=== PATIENT | female | born 1935 | race Caucasian/White ===

== ENCOUNTER 2018-10-17 19:23 | Emergency (ER) | payer MEDICARE ==
[~2018-10-17] VITALS: Ht 152.4 cm; Wt 46.7 kg
[2018-10-17] MEDS ORDERED: LOSA25 PO (19:37)
[2018-10-17] MEDS ORDERED: DILT30 PO (19:37)
[2018-10-17 20:06] LABS: BASOPHILS ABSOLUTE AUTO 0.04 K/mm3 (0.00-0.23); BASOPHILS PERCENT AUTO 1 % (0-2); EOSINOPHILS ABSOLUTE AUTO 0.13 K/mm3 (0.00-0.68); EOSINOPHILS PERCENT AUTO 2 % (0-6); Hematocrit 32.9 % (33.0-51.0); Hemoglobin 10.5 g/dL (11.5-16.0); IMMATURE GRAN ABSOLUTE AUTO 0.01 K/mm3 (0.00-0.10); IMMATURE GRAN PERCENT AUTO 0 % (0-1); LYMPHOCYTES ABSOLUTE AUTO 1.89 K/mm3 (0.84-5.20); LYMPHOCYTES PERCENT AUTO 31 % (21-46); MONOCYTES ABSOLUTE AUTO 0.51 K/mm3 (0.16-1.47); MONOCYTES PERCENT AUTO 8 % (4-13); Mean Corpuscular HGB 29.1 pg (26.0-34.0); Mean Corpuscular HGB Conc 31.9 g/dL (31.5-36.5); Mean Corpuscular Volume 91 fL (80-100); Mean Platelet Volume 8.4 fL (9.1-12.4); NEUTROPHILS ABSOLUTE AUTO 3.53 K/mm3 (1.96-9.15); NEUTROPHILS PERCENT AUTO 58 % (41-73); Platelet Count 311 K/mm3 (150-400); RDW Coefficient Variation 13.8 % (11.7-14.2); RDW Standard Deviation 46.5 fL (35.1-46.3); Red Blood Cell Count 3.61 M/mm3 (3.80-5.20); White Blood Cell Count 6.11 K/mm3 (4.00-11.30)
[2018-10-17 20:18] LABS: Albumin, Blood 3.7 g/dL (3.4-5.0); Bilirubin, Total 0.2 mg/dL (0.1-1.0); Bun/Creatinine Ratio 13.9 (12.0-20.0); Calcium, Blood 8.7 mg/dL (8.5-10.1); Creatinine, Blood 1.01 mg/dL (0.40-1.00); Globulin, Blood 3.6 g/dL (2.2-4.0); Potassium, Blood 3.7 mmol/L (3.5-5.5); Total Protein, Blood 7.3 g/dL (6.4-8.2)
[2018-10-17 21:24] LABS: Source, Urine Clean Catch
[2018-10-17 21:26] LABS: Bilirubin, Urine Neg (Neg); Blood, Urine 1+ (Neg); Glucose Qualitative, Urine Neg (Neg); Ketones, Urine 1+ (Neg); Leukocyte Esterase, Urine 1+ (Neg); Nitrite, Urine Neg (Neg); Protein, Urine 1+ (Neg); Urobilinogen, Urine 1+ (Normal)
[2018-10-17 21:38] LABS: Appearance, Urine Clear (Clear); Color, Urine Yellow (P-Yellow)
[2018-10-17 21:39] LABS: Bacteria Mod /hpf; Mucus Light (0-Heavy); Red Blood Cells, Urine 0-2 /hpf (0-2); Squamous Epithelial Cells Rare /hpf (Few)
[2018-10-17] MEDS ORDERED: HYOS.125 SL (23:11)
== END 2018-10-17 23:29 | disposition home or self-care (01) ==
LOC: ER 19:23
PROVIDERS: Physician Assistant
DX: R10.9 Unspecified abdominal pain (principal); R19.7 Diarrhea, unspecified; Z87.891 Personal history of nicotine dependence; Z79.899 Other long term (current) drug therapy
CPT/HCPCS: 80053; 81001; 83690; 85025; 87086; 99284

== ENCOUNTER 2020-08-29 00:09 | Observation (INO) | payer MEDICARE ==
[~2020-08-29] VITALS: Ht 167.6 cm; Wt 45.6 kg
[~2020-08-29 00:09] MED LIST: DILT30 PO; HYOS.125 SL; LOSA25 PO
[2020-08-29 00:38] LABS: BASOPHILS ABSOLUTE AUTO 0.06 K/mm3 (0.00-0.23); BASOPHILS PERCENT AUTO 1 % (0-2); EOSINOPHILS ABSOLUTE AUTO 0.18 K/mm3 (0.00-0.68); EOSINOPHILS PERCENT AUTO 2 % (0-6); Hematocrit 33.5 % (33.0-51.0); Hemoglobin 11.2 g/dL (11.5-16.0); IMMATURE GRAN ABSOLUTE AUTO 0.02 K/mm3 (0.00-0.10); IMMATURE GRAN PERCENT AUTO 0 % (0-1); LYMPHOCYTES ABSOLUTE AUTO 4.05 K/mm3 (0.84-5.20); LYMPHOCYTES PERCENT AUTO 50 % (21-46); MONOCYTES ABSOLUTE AUTO 0.53 K/mm3 (0.16-1.47); MONOCYTES PERCENT AUTO 7 % (4-13); Mean Corpuscular HGB 29.2 pg (26.0-34.0); Mean Corpuscular HGB Conc 33.4 g/dL (31.5-36.5); Mean Corpuscular Volume 87 fL (80-100); Mean Platelet Volume 8.1 fL (9.1-12.4); NEUTROPHILS ABSOLUTE AUTO 3.24 K/mm3 (1.96-9.15); NEUTROPHILS PERCENT AUTO 40 % (41-73); Platelet Count 372 K/mm3 (150-400); RDW Coefficient Variation 13.6 % (11.7-14.2); RDW Standard Deviation 43.3 fL (35.1-46.3); Red Blood Cell Count 3.84 M/mm3 (3.80-5.20); White Blood Cell Count 8.08 K/mm3 (4.00-11.30)
[2020-08-29 00:55] LABS: Alanine Aminotransfer (ALT/SGP 21 U/L (12-78); Albumin, Blood 3.8 g/dL (3.4-5.0); Alk Phos 95 U/L (50-136); Anion Gap 9 mmol/L (6-16); Aspartate Aminotrans (AST/SGOT 26 U/L (12-37); Bilirubin, Total 0.2 mg/dL (0.1-1.0); Blood Urea Nitrogen 16 mg/dL (8-24); CO2, Blood 24 mmol/L (21-32); Calcium, Blood 9.2 mg/dL (8.5-10.1); Chloride, Blood 104 mmol/L (98-108); Glomerular Filtration Rate 56 (60-); Glucose, Blood 94 mg/dL (70-99); Potassium, Blood 3.6 mmol/L (3.5-5.5); Sodium, Blood 137 mmol/L (136-145); Total Protein, Blood 7.8 g/dL (6.4-8.2); Troponin I <0.015 ng/mL (0.000-0.040)
[2020-08-29 01:33] LABS: Source, Urine Clean Catch
[2020-08-29 01:35] LABS: Bilirubin, Urine Neg (Neg); Blood, Urine Neg (Neg); Glucose Qualitative, Urine Neg (Neg); Ketones, Urine Neg (Neg); Leukocyte Esterase, Urine Neg (Neg); Nitrite, Urine Neg (Neg); Protein, Urine 1+ (Neg); Urobilinogen, Urine NORM (Normal)
[2020-08-29 01:37] LABS: Appearance, Urine Clear (Clear); Color, Urine Yellow (P-Yellow)
[2020-08-29] MEDS ORDERED: AMLO5 PO (02:35)
[2020-08-29 03:42] LABS: Magnesium, Blood 2.2 mg/dL (1.6-2.4)
--- NOTE | 2020-08-29 05:30 | NUR ---
RECEIVED REPORT FROM MIRA ERWIN RN. PT ARRIVED TO RM 336 VIA GURNEY. PT WAS A 1PA TO THE ROOM BED. A/O. ON RA. NO COMPLAINTS. PT ORIENTED TO CALL LT SYSTEM. CALL LT IN REACH. WILL PROVIDE CARE T/O SHIFT.
--- NOTE | 2020-08-29 06:42 | NUR ---
SHIFT SUMMARY: ER ADMIT AT 0530. A/0. ON RA. SR ON TELE AT 64. DENIES CP, SOB, NAUSEA. PT TO HAVE ECHO THIS AM. NO ACUTE CHANGES. WILL PROVIDE CARE UNTIL SHIFT REPORT.
[2020-08-29 09:00] LABS: BASOPHILS ABSOLUTE AUTO 0.05 K/mm3 (0.00-0.23); BASOPHILS PERCENT AUTO 1 % (0-2); EOSINOPHILS ABSOLUTE AUTO 0.01 K/mm3 (0.00-0.68); EOSINOPHILS PERCENT AUTO 0 % (0-6); IMMATURE GRAN ABSOLUTE AUTO 0.02 K/mm3 (0.00-0.10); IMMATURE GRAN PERCENT AUTO 0 % (0-1); LYMPHOCYTES ABSOLUTE AUTO 1.47 K/mm3 (0.84-5.20); LYMPHOCYTES PERCENT AUTO 20 % (21-46); MONOCYTES ABSOLUTE AUTO 0.39 K/mm3 (0.16-1.47); MONOCYTES PERCENT AUTO 5 % (4-13); Mean Corpuscular HGB 28.4 pg (26.0-34.0); Mean Corpuscular HGB Conc 32.4 g/dL (31.5-36.5); Mean Corpuscular Volume 88 fL (80-100); Mean Platelet Volume 8.2 fL (9.1-12.4); NEUTROPHILS ABSOLUTE AUTO 5.27 K/mm3 (1.96-9.15); NEUTROPHILS PERCENT AUTO 73 % (41-73); Platelet Count 357 K/mm3 (150-400); RDW Coefficient Variation 13.5 % (11.7-14.2); RDW Standard Deviation 43.7 fL (35.1-46.3); Red Blood Cell Count 3.88 M/mm3 (3.80-5.20); White Blood Cell Count 7.21 K/mm3 (4.00-11.30)
[2020-08-29 09:26] LABS: Alanine Aminotransfer (ALT/SGP 20 U/L (12-78); Albumin, Blood 3.8 g/dL (3.4-5.0); Alk Phos 91 U/L (50-136); Anion Gap 6 mmol/L (6-16); Aspartate Aminotrans (AST/SGOT 25 U/L (12-37); Bilirubin, Total 0.4 mg/dL (0.1-1.0); Blood Urea Nitrogen 12 mg/dL (8-24); Bun/Creatinine Ratio 13.2 (12.0-20.0); CO2, Blood 25 mmol/L (21-32); CPK Creatine Kinase 121 U/L (26-193); Calcium, Blood 9.1 mg/dL (8.5-10.1); Chloride, Blood 106 mmol/L (98-108); Creatinine, Blood 0.91 mg/dL (0.40-1.00); Globulin, Blood 3.8 g/dL (2.2-4.0); Glomerular Filtration Rate >60 (60-); Glucose, Blood 88 mg/dL (70-99); Potassium, Blood 4.3 mmol/L (3.5-5.5); Sodium, Blood 137 mmol/L (136-145); Total Protein, Blood 7.6 g/dL (6.4-8.2); Troponin I <0.015 ng/mL (0.000-0.040)
[2020-08-29 16:59] LABS: CPK Creatine Kinase 145 U/L (26-193); Troponin I <0.015 ng/mL (0.000-0.040)
--- NOTE | 2020-08-29 18:53 | NUR ---
ALERT. ORIENTED. TELE ON AND HAS BEEN SR LOW 60'S. IV PATENT. HAS DENIED ANY PAIN/DISCOMFORT . UNLABORED RESPIRATIONS. PLEASANT. COOPERATIVE. STEADY GAIT IN ROOM. [facility]
--- NOTE | 2020-08-30 05:36 | NUR ---
SHIFT SUMMARY NO ACUTE CHANGES THIS SHIFT. AOX4. TE-MOAK. PLEASENT & COOPERATIVE c CARE. VSS. TELE SB @57. DENIES N/V, SOB, CP, DIZZINESS OR PALPITATIONS. CALL LT IN REACH. WCTM UNTIL DAY NURSE ASSUMES CARE.
[2020-08-30] MEDS ORDERED: METO25ER PO (10:25)
[2020-08-30] MEDS ORDERED: XARELTO20 MG PO (10:25)
--- NOTE | 2020-08-30 11:00 | NUR ---
PATIENT D/C'D TO HOME WITH DAUGHTER. RX MEDCIATIONS FAXED TO [facility]. DC INSTRUCTIONS AND EDUCATION DISCUSSED WITH PATIENT AND COPY PROVIDED. PATIENT DENIES ANY FURTHER QUESTIONS OR CONCERNS.
== END 2020-08-30 11:27 | disposition home or self-care (01) ==
LOC: ER 00:09 → ERHOLD 00:10 → MEDS 05:30
PROVIDERS: Emergency Medicine; ADMIT Internal Medicine
DX: I48.0 Paroxysmal atrial fibrillation (principal); I13.10 Hypertensive heart and chronic kidney disease without heart failure, with stage 1 through stage 4 chronic kidney disease, or unspecified chronic kidney disease; N18.1 Chronic kidney disease, stage 1; Z87.891 Personal history of nicotine dependence
CPT/HCPCS: 36415; 71045; 80053; 82550; 83735; 83880; 84484; 85025; 93005; 93010; 93306; 96372; 96374-59; 99285-25; A9270; G0378; J1650; J7030

== ENCOUNTER 2021-08-26 15:50 | Observation (INO) | payer MEDICARE ==
[~2021-08-26] VITALS: Ht 152.4 cm; Wt 24.6 kg
[~2021-08-26 15:50] MED LIST changes: +AMLO5 PO; +METO25ER PO; +XARELTO15 M1 PO
[2021-08-26 16:17] LABS: BASOPHILS ABSOLUTE AUTO 0.03 K/mm3 (0.00-0.23); BASOPHILS PERCENT AUTO 1 % (0-2); EOSINOPHILS ABSOLUTE AUTO 0.06 K/mm3 (0.00-0.68); EOSINOPHILS PERCENT AUTO 1 % (0-6); Hematocrit 37.8 % (33.0-51.0); Hemoglobin 12.5 g/dL (11.5-16.0); IMMATURE GRAN ABSOLUTE AUTO 0.03 K/mm3 (0.00-0.10); IMMATURE GRAN PERCENT AUTO 1 % (0-1); LYMPHOCYTES ABSOLUTE AUTO 1.72 K/mm3 (0.84-5.20); LYMPHOCYTES PERCENT AUTO 26 % (21-46); MONOCYTES ABSOLUTE AUTO 0.48 K/mm3 (0.16-1.47); MONOCYTES PERCENT AUTO 7 % (4-13); Mean Corpuscular HGB 28.5 pg (26.0-34.0); Mean Corpuscular HGB Conc 33.1 g/dL (31.5-36.5); Mean Corpuscular Volume 86 fL (80-100); Mean Platelet Volume 8.2 fL (9.1-12.4); NEUTROPHILS ABSOLUTE AUTO 4.29 K/mm3 (1.96-9.15); NEUTROPHILS PERCENT AUTO 65 % (41-73); Platelet Count 377 K/mm3 (150-400); RDW Coefficient Variation 13.8 % (11.7-14.2); RDW Standard Deviation 43.8 fL (35.1-46.3); Red Blood Cell Count 4.38 M/mm3 (3.80-5.20); White Blood Cell Count 6.61 K/mm3 (4.00-11.30)
[2021-08-26] MEDS ORDERED: AMLODIPINE BESYL5 MG PO (16:26)
[2021-08-26] MEDS ORDERED: DIAZEPAM2 M2 PO (16:27)
[2021-08-26 16:38] LABS: Bilirubin, Total 0.3 mg/dL (0.1-1.0); Bun/Creatinine Ratio 14.5 (12.0-20.0); Calcium, Blood 9.1 mg/dL (8.5-10.1); Creatinine, Blood 0.9 mg/dL (0.40-1.00); Globulin, Blood 4.2 g/dL (2.2-4.0); Magnesium, Blood 1.9 mg/dL (1.6-2.4); Potassium, Blood 3.5 mmol/L (3.5-5.5); Total Protein, Blood 8.2 g/dL (6.4-8.2)
--- NOTE | 2021-08-26 21:30 | NUR ---
ADMISSION REPORT RECIEVED FROM ER NURSE. PATIENT ARRIVED TO PCU 6, ABLE TO TRANSFER SELF OVER TO PCU BED. CARDIZEM GTT INFUSING AT 5 ML/HR. HR 120s. CARDIAC MONITORING IN PLACE. ORIENTED TO ROOM/CALL LIGHT SYSTEM. DAUGHTER ACCOMPANIED PATIENT TO UNIT. BED IN LOW POSITION, WILL CONTINUE TO MONITOR T/O NIGHT.
[2021-08-27 04:35] LABS: BASOPHILS ABSOLUTE AUTO 0.06 K/mm3 (0.00-0.23); BASOPHILS PERCENT AUTO 1 % (0-2); EOSINOPHILS ABSOLUTE AUTO 0.04 K/mm3 (0.00-0.68); EOSINOPHILS PERCENT AUTO 1 % (0-6); Hemoglobin 12.2 g/dL (11.5-16.0); IMMATURE GRAN ABSOLUTE AUTO 0.01 K/mm3 (0.00-0.10); IMMATURE GRAN PERCENT AUTO 0 % (0-1); LYMPHOCYTES ABSOLUTE AUTO 1.92 K/mm3 (0.84-5.20); LYMPHOCYTES PERCENT AUTO 27 % (21-46); MONOCYTES ABSOLUTE AUTO 0.51 K/mm3 (0.16-1.47); MONOCYTES PERCENT AUTO 7 % (4-13); Mean Corpuscular HGB 28.8 pg (26.0-34.0); Mean Corpuscular Volume 87 fL (80-100); Mean Platelet Volume 8.6 fL (9.1-12.4); NEUTROPHILS ABSOLUTE AUTO 4.61 K/mm3 (1.96-9.15); NEUTROPHILS PERCENT AUTO 65 % (41-73); Platelet Count 357 K/mm3 (150-400); RDW Coefficient Variation 14.1 % (11.7-14.2); RDW Standard Deviation 44.9 fL (35.1-46.3); Red Blood Cell Count 4.24 M/mm3 (3.80-5.20); White Blood Cell Count 7.15 K/mm3 (4.00-11.30)
[2021-08-27 05:04] LABS: Alanine Aminotransfer (ALT/SGP 27 U/L (12-78); Albumin, Blood 3.7 g/dL (3.4-5.0); Alk Phos 97 U/L (50-136); Anion Gap 7 mmol/L (6-16); Aspartate Aminotrans (AST/SGOT 25 U/L (12-37); Bilirubin, Total 0.5 mg/dL (0.1-1.0); Blood Urea Nitrogen 10 mg/dL (8-24); Bun/Creatinine Ratio 13.3 (12.0-20.0); CO2, Blood 24 mmol/L (21-32); Calcium, Blood 9.1 mg/dL (8.5-10.1); Chloride, Blood 104 mmol/L (98-108); Creatinine, Blood 0.75 mg/dL (0.40-1.00); Globulin, Blood 3.8 g/dL (2.2-4.0); Glomerular Filtration Rate >60 (60-); Glucose, Blood 87 mg/dL (70-99); Potassium, Blood 4.5 mmol/L (3.5-5.5); Sodium, Blood 135 mmol/L (136-145); Total Protein, Blood 7.5 g/dL (6.4-8.2)
--- NOTE | 2021-08-27 05:18 | NUR ---
SHIFT SUMMARY PATIENT ALERT AND ORIENTED x4. VSS. HR LOW TO MID 60s, PATIENT CONVERTED TO SINUS RHYTHM, CARDIZEM GTT ON STANBY SINCE 2239. SEE FLOWSHEET. PATIENT HAS SLEPT MAJORITY OF SHIFT COMFORTABLY. DENIES CHEST PAIN, SOB OR ANY OTHER DISCOMFORT T/O THE NIGHT. PATIENT USING BEDSIDE COMMODE AT BEDSIDE, STAND BY ASSIST. NO OTHER CHANGES SINCE ADMISSION. CALL LIGHT IN REACH, BED IN LOW POSITION. WILL REPORT TO DAY SHIFT RN.
[2021-08-27] MEDS ORDERED: METO25ER PO (11:56)
--- NOTE | 2021-08-27 13:55 | NUR ---
PT DISCHARGE TO HOME WITH DISCHARGE ORDERS. MEDICATION AND DISCHARGE INSTRUCTIONS DISCLOSED WITH THE PT. NO NEW MEDICATIONS AT THIS TIME PT TO FOLLOW-UP WITH CARDIOLOGISTS AND PCP WITHIN A WEEK AND WITH A PROVIDER AT [facility] TO DO ABLATION. DENIES ANY CHEST PAIN/DISCOMFORT, VITALS HAS BEEN STABLE, REMAINED SINUS RHYTHM T/O SHIFT. ALL BELONGINGS SENT WITH THE PT, ACCOMPANIED BY PCT VIA WHEELCHAIR.
== END 2021-08-27 12:23 | disposition home or self-care (01) ==
LOC: ER 15:50 → PCU 15:51
PROVIDERS: Physician Assistant; ADMIT Internal Medicine
DX: I48.91 Unspecified atrial fibrillation (principal); I12.9 Hypertensive chronic kidney disease with stage 1 through stage 4 chronic kidney disease, or unspecified chronic kidney disease; N18.1 Chronic kidney disease, stage 1; E87.6 Hypokalemia; Z79.01 Long term (current) use of anticoagulants
CPT/HCPCS: 36415; 71045; 80053; 83735; 83880; 84484; 85025; A9270; J3475; J3480; J7030

== ENCOUNTER 2022-01-16 13:46 | Observation (INO) | payer MEDICARE ==
[~2022-01-16] VITALS: Ht 152.4 cm; Wt 45.3 kg
[~2022-01-16 13:46] MED LIST changes: +AMLODIPINE BESYL5 MG PO; +DIAZEPAM2 M2 PO
[2022-01-16 14:31] LABS: BASOPHILS ABSOLUTE AUTO 0.05 K/mm3 (0.00-0.23); BASOPHILS PERCENT AUTO 1 % (0-2); EOSINOPHILS ABSOLUTE AUTO 0.02 K/mm3 (0.00-0.68); EOSINOPHILS PERCENT AUTO 0 % (0-6); Hemoglobin 12.9 g/dL (11.5-16.0); IMMATURE GRAN ABSOLUTE AUTO 0.03 K/mm3 (0.00-0.10); IMMATURE GRAN PERCENT AUTO 0 % (0-1); LYMPHOCYTES ABSOLUTE AUTO 1.87 K/mm3 (0.84-5.20); LYMPHOCYTES PERCENT AUTO 22 % (21-46); MONOCYTES ABSOLUTE AUTO 0.56 K/mm3 (0.16-1.47); MONOCYTES PERCENT AUTO 6 % (4-13); Mean Corpuscular HGB 29.3 pg (26.0-34.0); Mean Corpuscular HGB Conc 33.9 g/dL (31.5-36.5); Mean Corpuscular Volume 86 fL (80-100); Mean Platelet Volume 8.2 fL (9.1-12.4); NEUTROPHILS ABSOLUTE AUTO 6.18 K/mm3 (1.96-9.15); NEUTROPHILS PERCENT AUTO 71 % (41-73); Platelet Count 405 K/mm3 (150-400); RDW Coefficient Variation 13.6 % (11.7-14.2); RDW Standard Deviation 42.8 fL (35.1-46.3); Red Blood Cell Count 4.41 M/mm3 (3.80-5.20); White Blood Cell Count 8.71 K/mm3 (4.00-11.30)
[2022-01-16 14:36] LABS: Albumin, Blood 3.9 g/dL (3.4-5.0); Bilirubin, Total 0.5 mg/dL (0.1-1.0); Bun/Creatinine Ratio 18.9 (12.0-20.0); Calcium, Blood 9.6 mg/dL (8.5-10.1); Creatinine, Blood 0.74 mg/dL (0.40-1.00); Total Protein, Blood 7.9 g/dL (6.4-8.2)
[2022-01-16 15:14] LABS: Source, Urine Condom Cath
[2022-01-16 15:31] LABS: Appearance, Urine Clear (Clear); Bilirubin, Urine Neg (Neg); Blood, Urine Neg (Neg); Glucose Qualitative, Urine Neg (Neg); Ketones, Urine 1+ (Neg); Leukocyte Esterase, Urine Neg (Neg); Nitrite, Urine Neg (Neg); Protein, Urine Neg (Neg); Urobilinogen, Urine NORM (Normal)
[2022-01-16 15:56] LABS: Color, Urine Pale Yellow (P-Yellow)
--- NOTE | 2022-01-16 21:17 | NUR ---
ASSUMED CARE OF PATIENT AT APPROXIMATELY 2051 FROM ED RN [place]. PATIENT ALERT AND ORIENTED X4; SBA FROM ED TO PCU STRETCHER; INDEPENDENT IN ROOM. PATIENT REPORTS SHE TOOK 10MG OF AMLODIPINE LAST NIGHT AND FELT DIZZY. PATIENT DENIES CP/PRESSURE, PAIN ELSEWHERE, NUMBESS, TINGING, DIZZINESS, AND NAUSEA. SR ON TELE; OXYGEN SATURATION ABOVE 90% ON ROOM AIR. PIV X2 S/L. ARRIVED ON CARDIZEM GTT AT 5; PUT IN STANDBY SR IN 60'S. ADMISSION COMPLETE.
--- NOTE | 2022-01-16 21:30 | NUR ---
PATIENT CALLED RN TO ROOM CONCERNED PILL GIVEN WAS NOT AMLODIPINE; PILL WRAPPER PROVIDED AND EDUCATED PATIENT ON DIFFERENT MANUFACTURES.
[2022-01-17 04:28] LABS: BASOPHILS ABSOLUTE AUTO 0.04 K/mm3 (0.00-0.23); BASOPHILS PERCENT AUTO 1 % (0-2); EOSINOPHILS ABSOLUTE AUTO 0.07 K/mm3 (0.00-0.68); EOSINOPHILS PERCENT AUTO 1 % (0-6); Hematocrit 32.1 % (33.0-51.0); Hemoglobin 10.9 g/dL (11.5-16.0); IMMATURE GRAN ABSOLUTE AUTO 0.01 K/mm3 (0.00-0.10); IMMATURE GRAN PERCENT AUTO 0 % (0-1); LYMPHOCYTES ABSOLUTE AUTO 1.65 K/mm3 (0.84-5.20); LYMPHOCYTES PERCENT AUTO 34 % (21-46); MONOCYTES ABSOLUTE AUTO 0.42 K/mm3 (0.16-1.47); MONOCYTES PERCENT AUTO 9 % (4-13); Mean Corpuscular HGB 28.9 pg (26.0-34.0); Mean Corpuscular Volume 85 fL (80-100); Mean Platelet Volume 8.1 fL (9.1-12.4); NEUTROPHILS ABSOLUTE AUTO 2.74 K/mm3 (1.96-9.15); NEUTROPHILS PERCENT AUTO 56 % (41-73); Platelet Count 337 K/mm3 (150-400); RDW Coefficient Variation 13.7 % (11.7-14.2); RDW Standard Deviation 42.6 fL (35.1-46.3); Red Blood Cell Count 3.77 M/mm3 (3.80-5.20); White Blood Cell Count 4.93 K/mm3 (4.00-11.30)
[2022-01-17 04:51] LABS: Albumin, Blood 3.3 g/dL (3.4-5.0); Bilirubin, Total 0.5 mg/dL (0.1-1.0); Bun/Creatinine Ratio 15.1 (12.0-20.0); Calcium, Blood 8.7 mg/dL (8.5-10.1); Creatinine, Blood 0.73 mg/dL (0.40-1.00); Globulin, Blood 3.2 g/dL (2.2-4.0); Potassium, Blood 3.4 mmol/L (3.5-5.5); Total Protein, Blood 6.5 g/dL (6.4-8.2)
--- NOTE | 2022-01-17 06:16 | NUR ---
PATIENT SLEPT ABOUT SEVEN HOURS LAST NIGHT. NO ACUTE CHANGES TO REPORT.
--- NOTE | 2022-01-17 06:58 | NUR ---
PATIENT REPORTS FEELING LIGHT HEADED WITH AMBULATION TO BATHROOM; HEART RATE SR ON TELE IN 90'S; BP STABLE; NO LONGER LIGHTHEADED WHEN BACK IN BED.
--- NOTE | 2022-01-17 07:11 | NUR ---
Pt is in normal sinus rhythm; per ORLANDO Lee pt has been NSR since arrival from ED. The pt reports no adverse symptoms except for some dizzyness when she was up a few minutes ago to use the bathroom.
[2022-01-17] MEDS ORDERED: Amlodipine Bes2.5 MG PO (14:20)
== END 2022-01-17 14:30 | disposition home or self-care (01) ==
LOC: ER 13:46 → PCU 13:47
PROVIDERS: Physician Assistant; ADMIT Internal Medicine
DX: I48.91 Unspecified atrial fibrillation (principal); I12.9 Hypertensive chronic kidney disease with stage 1 through stage 4 chronic kidney disease, or unspecified chronic kidney disease; N18.1 Chronic kidney disease, stage 1; E87.1 Hypo-osmolality and hyponatremia; I95.9 Hypotension, unspecified; Z79.01 Long term (current) use of anticoagulants
CPT/HCPCS: 36415; 71045; 80053; 81003; 83735; 83880; 84443; 84484; 85025; 93005; 93010; 96365; 96367; 96376; 99285-25; A9270; G0378; J3475; J7030

== ENCOUNTER 2022-10-27 10:17 | Emergency (ER) | payer MEDICARE ==
[~2022-10-27] VITALS: Ht 152.4 cm; Wt 43.1 kg
[~2022-10-27 10:17] MED LIST changes: +Amlodipine Bes2.5 MG PO
[2022-10-27 10:46] LABS: BASOPHILS ABSOLUTE AUTO 0.04 K/mm3 (0.00-0.23); BASOPHILS PERCENT AUTO 1 % (0-2); EOSINOPHILS ABSOLUTE AUTO 0.05 K/mm3 (0.00-0.68); EOSINOPHILS PERCENT AUTO 1 % (0-6); Hematocrit 36.1 % (33.0-51.0); Hemoglobin 12.1 g/dL (11.5-16.0); IMMATURE GRAN ABSOLUTE AUTO 0.01 K/mm3 (0.00-0.10); IMMATURE GRAN PERCENT AUTO 0 % (0-1); LYMPHOCYTES PERCENT AUTO 19 % (21-46); MONOCYTES ABSOLUTE AUTO 0.44 K/mm3 (0.16-1.47); MONOCYTES PERCENT AUTO 6 % (4-13); Mean Corpuscular HGB 29.4 pg (26.0-34.0); Mean Corpuscular HGB Conc 33.5 g/dL (31.5-36.5); Mean Corpuscular Volume 88 fL (80-100); Mean Platelet Volume 7.7 fL (9.1-12.4); NEUTROPHILS ABSOLUTE AUTO 5.31 K/mm3 (1.96-9.15); NEUTROPHILS PERCENT AUTO 73 % (41-73); Platelet Count 347 K/mm3 (150-400); RDW Coefficient Variation 13.6 % (11.7-14.2); RDW Standard Deviation 43.8 fL (35.1-46.3); Red Blood Cell Count 4.12 M/mm3 (3.80-5.20); White Blood Cell Count 7.25 K/mm3 (4.00-11.30)
[2022-10-27 11:06] LABS: Albumin, Blood 3.6 g/dL (3.4-5.0); Bilirubin, Total 0.4 mg/dL (0.1-1.0); Bun/Creatinine Ratio 13.3 (12.0-20.0); Calcium, Blood 8.7 mg/dL (8.5-10.1); Creatinine, Blood 0.98 mg/dL (0.40-1.00); Globulin, Blood 3.7 g/dL (2.2-4.0); Potassium, Blood 4.3 mmol/L (3.5-5.5); Total Protein, Blood 7.3 g/dL (6.4-8.2)
[2022-10-27] MEDS ORDERED: DILTIAZEM 24HR120 M4 PO (11:20)
[2022-10-27] MEDS ORDERED: LOSA50 PO (11:20)
[2022-10-27 12:30] VITALS: BP 137/63
== END 2022-10-27 12:55 | disposition home or self-care (01) ==
LOC: ER 10:17
PROVIDERS: Student in an Organized Health Care Education/Training Program
DX: I48.91 Unspecified atrial fibrillation (principal); I12.9 Hypertensive chronic kidney disease with stage 1 through stage 4 chronic kidney disease, or unspecified chronic kidney disease; N18.9 Chronic kidney disease, unspecified; Z79.01 Long term (current) use of anticoagulants; Z79.899 Other long term (current) drug therapy
CPT/HCPCS: 36415; 71046; 80053; 84484; 85025; 93005; 93010; 96360; 99285-25; J7030